=== PATIENT | female | born 2000 | race Two or more races ===

== ENCOUNTER 2021-09-28 22:34 | Inpatient (IN) | payer OTHER ==
[2021-09-29] MEDS ORDERED: Lidocaine 1% 50 ML MDV INJECT ONE (00:53)
[2021-09-29] MEDS ORDERED: Sodium Chloride 0.9% 10 ML Syringe FLUSH PRN (00:53)
[2021-09-29] MEDS ORDERED: Ondansetron 4 MG/2 ML SDV IVPUSH PRN (00:53)
[2021-09-29] MEDS ORDERED: Calcium Carbonate 500 MG Tab.Chew PO PRN (00:53)
[2021-09-29] MEDS ORDERED: Oxytocin/Lactated Ringers 10 UNIT/1,000 ML BAG IV SCH ×2 (01:00)
[2021-09-29] MEDS: Nalbuphine HCl 10 MG/ 1ML Amp IVPUSH PRN ×2 (03:21→05:16)
[2021-09-29] MEDS: Lactated Ringers 1,000 ML IV SCH ×3 (06:16→08:49)
[2021-09-29] MEDS ORDERED: diphenhydrAMINE 50 MG/ML SDV IVPUSH PRN (06:41)
[2021-09-29] MEDS ORDERED: ePHEDrine 50 MG/ML SDV IVPUSH PRN (06:41)
[2021-09-29] MEDS ORDERED: fentaNYL 100 MCG/2 ML SDV EPIDUR PRN (06:41)
[2021-09-29] MEDS ORDERED: Bupivacaine/fentaNYL/NS 100 ML Bag EPIDUR PRN (06:41)
[2021-09-29] MEDS ORDERED: Sodium Chloride 0.9% 10 ML Syringe FLUSH SCH (09:00)
[2021-09-29] MEDS ORDERED: Methylergonovine 0.2 MG/1 ML Amp ONE (11:38)
[2021-09-29] MEDS ORDERED: Methylergonovine 0.2 MG/1 ML Amp IM STA (11:42)
[2021-09-29] MEDS ORDERED: Witch Hazel Medicated Pads 40/Jar TOP PRN (13:22)
[2021-09-29] MEDS ORDERED: Acetaminophen 325 MG Tab PO PRN (13:22)
[2021-09-29] MEDS ORDERED: Benzocaine/Menthol 20%-0.5% Spray 78 GM Cannister TOP PRN (13:22)
[2021-09-29] MEDS: Docusate Sodium 100 MG Cap PO PRN (20:33)
[2021-09-29] MEDS: Ibuprofen 600 MG Tab PO PRN (20:33)
[2021-09-30] MEDS ORDERED: Bupivacaine 0.25% 10 ML SDV ONE
[2021-09-30] MEDS: Ibuprofen 600 MG Tab PO PRN ×2 (05:03→12:01)
[2021-09-30] MEDS: Docusate Sodium 100 MG Cap PO PRN (12:01)
== END 2021-09-30 13:57 | disposition home or self-care (01) | DRG 807 ==
LOC: JD.OBCHECK 22:34 → JD.OB 22:37 → JD.OBCHECK 09-29 00:53 → UNDOADMOB 09-29 00:54 → JD.OB 09-29 00:54 → OBSVTOIN 09-29 11:20 → JD.OB 09-29 11:21
PROVIDERS: ADMIT Obstetrics & Gynecology; ATTEND Obstetrics & Gynecology
PROC: 10E0XZZ Delivery of Products of Conception, External Approach (ICD-10-PCS; principal; 2021-09-29)
PROC: 0KQM0ZZ Repair Perineum Muscle, Open Approach (ICD-10-PCS; 2021-09-29)
PROC: 10907ZC Drainage of Amniotic Fluid, Therapeutic from Products of Conception, Via Natural or Artificial Opening (ICD-10-PCS; 2021-09-29)
PROC: 3E0R3BZ Introduction of Anesthetic Agent into Spinal Canal, Percutaneous Approach (ICD-10-PCS; 2021-09-29)
PROC: 00HU33Z Insertion of Infusion Device into Spinal Canal, Percutaneous Approach (ICD-10-PCS; 2021-09-29)
DX: O98.42 Viral hepatitis complicating childbirth (principal); Z37.0 Single live birth; Z3A.39 39 weeks gestation of pregnancy; B18.2 Chronic viral hepatitis C; O70.1 Second degree perineal laceration during delivery
CPT/HCPCS: 01967; 36415; 51702; 59025; 59409; 84112; 85025; 86592; A9270-GY; J2210; J2300; J2405; J2590; J3010; J3490; J7120

== ENCOUNTER 2023-01-14 07:16 | Inpatient (IN) | payer BC ==
[~2023-01-14 07:16] MED LIST: Bupivacaine 0.25% 10 ML SDV ONE; Lidocaine 1% 10 ML MDV ONE
[2023-01-14] MEDS ORDERED: Sodium Chloride 0.9% 10 ML Syringe FLUSH PRN (07:23)
[2023-01-14] MEDS ORDERED: Nalbuphine HCl 10 MG/ 1ML Amp IVPUSH PRN (07:23)
[2023-01-14] MEDS ORDERED: Lidocaine 1% 50 ML MDV INJECT PRN (07:23)
[2023-01-14] MEDS ORDERED: Ondansetron 4 MG/2 ML SDV IVPUSH PRN (07:23)
[2023-01-14] MEDS ORDERED: Oxytocin/Lactated Ringers 30 UNIT/500 ML BAG IV SCH ×2 (07:30→11:15)
[2023-01-14 07:57] LABS: BASOPHILS PERCENT AUTO 0.3 % (0.0-1.0); EOSINOPHILS ABSOLUTE AUTO 0.1 K/mm3 (0.0-0.4); EOSINOPHILS PERCENT AUTO 0.6 % (0.0-6.0); HEMATOCRIT 35.7 % (37.0-47.0); HEMOGLOBIN 11.9 gm/dl (12.0-16.0); IMMATURE GRAN ABSOLUTE AUTO 0.07 K/mm3 (0.00-0.05); IMMATURE GRAN PERCENT AUTO 0.9 % (0.0-0.4); LYMPHOCYTES ABSOLUTE AUTO 2.1 K/mm3 (1.0-4.8); LYMPHOCYTES PERCENT AUTO 26.7 % (24.0-44.0); MEAN CORPUSCULAR HEMOGLOBIN 31.9 pg (28.0-32.0); MEAN CORPUSCULAR HGB CONC 33.3 g/dl (32.0-36.0); MEAN CORPUSCULAR VOLUME 95.7 fl (83.0-99.0); MEAN PLATELET VOLUME 9.3 fl (9.4-12.3); MONOCYTES ABSOLUTE AUTO 0.5 K/mm3 (0.0-0.8); MONOCYTES PERCENT AUTO 6.5 % (0.0-8.0); NEUTROPHILS ABSOLUTE AUTO 5.1 K/mm3 (1.8-7.7); PLATELET COUNT,PLT 261 K/mm3 (150-400); RED BLOOD CELL COUNT 3.73 M/mm3 (4.10-5.30); WHITE BLOOD CELL COUNT,WBC 7.79 K/mm3 (3.9-11.3)
[2023-01-14] MEDS ORDERED: FLU (Flulaval Quad) 2023-24(6MOS UP)/PF 60 MCG/0.5 ML Syringe IM ONE (08:45)
[2023-01-14] MEDS ORDERED: Sodium Chloride 0.9% 10 ML Syringe FLUSH SCH (09:00)
[2023-01-14] MEDS: Lactated Ringers 1,000 ML IV SCH ×3 (10:52→13:55)
[2023-01-14] MEDS ORDERED: diphenhydrAMINE 50 MG/ML SDV IVPUSH PRN (12:42)
[2023-01-14] MEDS ORDERED: ePHEDrine 50 MG/ML SDV IVPUSH PRN (12:42)
[2023-01-14] MEDS ORDERED: fentaNYL 100 MCG/2 ML SDV EPIDUR PRN (12:42)
[2023-01-14] MEDS ORDERED: Bupivacaine/fentaNYL/NS 100 ML Bag EPIDUR PRN (12:42)
[2023-01-14] MEDS ORDERED: Benzocaine/Menthol 20%-0.5% Spray 78 GM Cannister TOP PRN (16:37)
[2023-01-14] MEDS ORDERED: Witch Hazel Medicated Pads 40/Jar TOP PRN (16:37)
[2023-01-14] MEDS ORDERED: Acetaminophen 325 MG Tab PO PRN (16:37)
[2023-01-14] MEDS ORDERED: Docusate Sodium 100 MG Cap PO PRN (16:37)
[2023-01-14] MEDS ORDERED: Ibuprofen 600 MG Tab PO PRN (16:37)
== END 2023-01-15 17:15 | disposition home or self-care (01) | DRG 560 ==
LOC: JD.OB 07:16 → JD.OBCHECK 07:16 → JD.OB 07:24 → OBSVTOIN 16:14 → JD.OB 16:15
PROVIDERS: ADMIT Obstetrics & Gynecology; ATTEND Obstetrics & Gynecology
PROC: 10E0XZZ Delivery of Products of Conception, External Approach (ICD-10-PCS; principal; 2023-01-14)
PROC: 10907ZC Drainage of Amniotic Fluid, Therapeutic from Products of Conception, Via Natural or Artificial Opening (ICD-10-PCS; 2023-01-14)
PROC: 3E033VJ Introduction of Other Hormone into Peripheral Vein, Percutaneous Approach (ICD-10-PCS; 2023-01-14)
PROC: 3E0R3BZ Introduction of Anesthetic Agent into Spinal Canal, Percutaneous Approach (ICD-10-PCS; 2023-01-14)
PROC: 00HU33Z Insertion of Infusion Device into Spinal Canal, Percutaneous Approach (ICD-10-PCS; 2023-01-14)
PROC: 0HQ9XZZ Repair Perineum Skin, External Approach (ICD-10-PCS; 2023-01-14)
DX: O48.0 Post-term pregnancy (principal); O98.42 Viral hepatitis complicating childbirth; B19.20 Unspecified viral hepatitis C without hepatic coma; O99.344 Other mental disorders complicating childbirth; F41.9 Anxiety disorder, unspecified; F32.A Depression, unspecified; Z90.49 Acquired absence of other specified parts of digestive tract; Z3A.40 40 weeks gestation of pregnancy; Z37.0 Single live birth
CPT/HCPCS: 36415; 51702; 59025; 59409; 85025; 86592; 86850; 86900; 86901; 90686; G0008; J3010; J3490; J7120; J7999